=== PATIENT | male | born 1955 | race Caucasian/White ===

== ENCOUNTER 2018-06-23 09:30 | Day surgery (SDC) | payer OTHER ==
[~2018-06-23] VITALS: Ht 172.7 cm; Wt 79.0 kg
[2018-06-23] MEDS ORDERED: OMEPRAZOLE (10:42)
[2018-06-23] MEDS ORDERED: IBUPROFEN (10:42)
[2018-06-23] MEDS ORDERED: CYCLOBENZAPRINE (10:42)
[2018-06-23 10:43] VITALS: Ht 172.7 cm; Wt 79.0 kg
[2018-06-23 10:59] VITALS: BP 132/73; PULSE 101; RESP 18
[2018-06-23] MEDS ORDERED: MIDAZOLAM 1 MG/ML 2 ML INJ ONE ×3 (12:06)
[2018-06-23] MEDS ORDERED: FENTAnyl 50 MCG/ML VIAL ONE (12:06)
[2018-06-23 12:28] VITALS: BP 132/80; PULSE 99; RESP 16
== END 2018-06-23 16:11 | disposition home or self-care (01) ==
LOC: GIL 09:30
PROVIDERS: ATTEND Internal Medicine Gastroenterology
DX: Z12.11 Encounter for screening for malignant neoplasm of colon (principal); K57.30 Diverticulosis of large intestine without perforation or abscess without bleeding
CPT/HCPCS: 45378; J2250; J3010